=== PATIENT | female | born 1960 | race Caucasian/White ===

== ENCOUNTER 2017-07-28 09:34 | Observation (INO) | payer OTHER ==
[~2017-07-28] VITALS: Ht 170.2 cm; Wt 93.6 kg
[2017-07-28] MEDS ORDERED: SODIUM CHLORIDE FLUSH 10ML SYR IVF ONE (10:30)
[2017-07-28] MEDS ORDERED: ONDANSETRON 2MG/ML, 2ML IVPush ONE (10:30)
[2017-07-28] MEDS ORDERED: CEFOTETAN 1 GM ONE (10:34)
[2017-07-28] MEDS ORDERED: DEXAMETHASONE 4 MG/ML, 1ML ONE ×2 (10:34→16:15)
[2017-07-28] MEDS ORDERED: ROCURONIUM 10 MG/ML,10ML ONE (10:34)
[2017-07-28] MEDS ORDERED: PROPOFOL 10 MG/ML, 20ML ONE ×2 (10:34→15:45)
[2017-07-28] MEDS ORDERED: SUCCINYLCHOLINE 20 MG/ML, 10ML ONE (10:34)
[2017-07-28] MEDS ORDERED: ONDANSETRON 2MG/ML, 2ML ONE ×3 (10:34→16:24)
[2017-07-28] MEDS ORDERED: NEOSTIGMINE 1 MG/ML, 10ML ONE ×2 (10:34→16:22)
[2017-07-28] MEDS ORDERED: GLYCOPYRROLATE 0.2MG/1ML, 5ML ONE (10:34)
[2017-07-28 10:38] LABS: BASOPHILS # (AUTO) 0.11 x10^3/uL (0-0.1); BASOPHILS % (AUTO) 1 % (0-1); EOSINOPHILS # (AUTO) 0.07 x10^3/uL (0-0.4); EOSINOPHILS % (AUTO) 1 % (1-7); LYMPHOCYTES # (AUTO) 1.31 x10^3/uL (1-3.4); LYMPHOCYTES % (AUTO) 15 % (22-44); MD NO; MEAN CORPUSCULAR HEMOGLOBIN 28.8 pg (27.0-34.8); MEAN CORPUSCULAR HGB CONC 33.2 g/dL (32.4-35.8); MEAN CORPUSCULAR VOLUME 86.7 fL (80-100); MEAN PLATELET VOLUME 7.9 fL (7.4-10.4); MONOCYTES # (AUTO) 0.64 x10^3/uL (0.2-0.8); MONOCYTES % (AUTO) 7 % (2-9); NEUTROPHILS # (AUTO) 6.83 x10^3/uL (1.8-6.8); NEUTROPHILS % (AUTO) 76 % (42-75); PLATELET COUNT 220 x10^3/uL (130-400); RED BLOOD COUNT 4.51 x10^6/uL (3.82-5.3); RED CELL DISTRIBUTION WIDTH 14.1 % (9.6-15.2)
[2017-07-28 10:50] LABS: ALBUMIN 3.4 g/dL (3.4-5.0); ANION GAP 8 mmol/L (5-15); CALCIUM 8.8 mg/dL (8.5-10.1); CHLORIDE 111 mmol/L (98-107)
[2017-07-28 10:50] LABS: MICROSCOPIC NOT IND
[2017-07-28 10:51] LABS: CULTURE INDICATED? NO
[2017-07-28 10:54] LABS: ALANINE AMINOTRANSFERASE 63 U/L (12-78); ALKALINE PHOSPHATASE 71 U/L (45-117); BILIRUBIN,TOTAL 0.9 mg/dL (0.2-1.0); CREATININE 0.73 mg/dL (0.55-1.02); TOTAL PROTEIN 7.2 g/dL (6.4-8.2)
[2017-07-28] MEDS ORDERED: MORPHINE SULFATE 4 MG/ML, 1ML ONE ×2 (10:59→11:38)
[2017-07-28] MEDS: MORPHINE SULFATE 4 MG/ML, 1ML IVPush PRN ×2 (11:10→11:48)
[2017-07-28] MEDS ORDERED: TOPI50TA8 PO (11:20)
[2017-07-28] MEDS ORDERED: VITA1TAB68 PO (11:20)
[2017-07-28] MEDS ORDERED: SELE200T10 PO (11:20)
[2017-07-28] MEDS ORDERED: VITA100C8 PO (11:20)
[2017-07-28] MEDS ORDERED: ESTR1TAB17 PO (11:20)
[2017-07-28] MEDS ORDERED: LIOT5TAB3 PEG (11:20)
[2017-07-28] MEDS ORDERED: ROSU5TAB PO (11:20)
[2017-07-28] MEDS ORDERED: MELO15TA24 PO (11:20)
[2017-07-28] MEDS ORDERED: DULO30CA2 PO (11:20)
[2017-07-28] MEDS ORDERED: TRAZ50TA18 PO (11:20)
[2017-07-28] MEDS ORDERED: UBID100C24 PEG (11:20)
[2017-07-28] MEDS ORDERED: PREG100C PO (11:20)
[2017-07-28] MEDS ORDERED: CALC1WAF PO (11:20)
[2017-07-28] MEDS ORDERED: IODORAL (11:20)
[2017-07-28] MEDS ORDERED: BACL-19 PO (11:20)
[2017-07-28] MEDS ORDERED: AZEL137S4 NAS (11:20)
[2017-07-28] MEDS ORDERED: NA P1TAB PO (11:20)
[2017-07-28] MEDS ORDERED: LUBI8CAP4 PO (11:20)
[2017-07-28] MEDS ORDERED: OMNIPAQUE 350 MG/ML, 100ML BOTTLE ONE (11:25)
[2017-07-28] MEDS ORDERED: CEFOTETAN PMX 1GM/50ML 50 ML ONE (11:53)
[2017-07-28] MEDS ORDERED: CEFOTETAN PMX 1GM/50ML 50 ML IV ONE (12:00)
[2017-07-28] MEDS ORDERED: ACETAMINOPHEN 500 MG TABLET PO ONE (15:00)
[2017-07-28] MEDS ORDERED: GABAPENTIN 300 MG CAPSULE PO ONE (15:00)
[2017-07-28] MEDS ORDERED: BUPIVACAINE/PF 0.5% ONE (15:29)
[2017-07-28] MEDS ORDERED: EPINEPHRINE 1 MG/ML, 1ML ONE (15:29)
[2017-07-28] MEDS ORDERED: MIDAZOLAM 1 MG/ML, 2ML ONE (15:44)
[2017-07-28] MEDS ORDERED: FENTANYL PF 250 MCG/5ML ONE (15:45)
[2017-07-28] MEDS ORDERED: MIDAZOLAM 1 MG/ML, 2ML IV PRN (16:00)
[2017-07-28] MEDS ORDERED: FENTANYL PF 100 MCG/2ML IV PRN (16:00)
[2017-07-28] MEDS ORDERED: HYDROmorphone 1 MG/ML, 1ML IV PRN (16:00)
[2017-07-28] MEDS ORDERED: ACETAMINOPHEN 325 MG TABLET PO PRN (16:00)
[2017-07-28] MEDS ORDERED: MEPERIDINE/PF 25MG/0.5ML IVPush PRN (16:00)
[2017-07-28] MEDS ORDERED: morphine SULFATE 10 MG/ML, 1ML IV PRN (16:00)
[2017-07-28] MEDS ORDERED: HYDROcodone/APAP 7.5-325MG/15ML UDC PO PRN (16:00)
[2017-07-28] MEDS ORDERED: LABETALOL 5MG/ML, 20ML IV PRN (16:00)
[2017-07-28] MEDS ORDERED: hydrALAzine 20 MG/ML, 1ML IV PRN (16:00)
[2017-07-28] MEDS ORDERED: ONDANSETRON 2MG/ML, 2ML IVPush PRN (16:00)
[2017-07-28] MEDS ORDERED: PROMETHAZINE 12.5 MG SUPP PR PRN (16:00)
[2017-07-28] MEDS ORDERED: GLYCOPYRROLATE 0.4 MG/2 ML, 2ML ONE (16:22)
[2017-07-28] MEDS ORDERED: morphine SULFATE 10 MG/ML, 1ML IVPush PRN (16:30)
[2017-07-28] MEDS ORDERED: OXYcodone 5 MG/5 ML ORAL.SOL UDC PO PRN (16:30)
[2017-07-28] MEDS ORDERED: HYDROcodone/APAP 7.5-325MG/15ML UDC ONE (16:54)
[2017-07-28] MEDS ORDERED: FENTANYL PF 100 MCG/2ML ONE (16:54)
[2017-07-28] MEDS ORDERED: ONDANSETRON ODT 4 MG PO PRN (17:30)
[2017-07-28] MEDS ORDERED: OXYC1TAB7 PO (18:15)
[2017-07-28 18:53] VITALS: BP 98/52
== END 2017-07-28 19:10 | disposition home or self-care (01) ==
LOC: ED 10:57 → EDIP 11:40 → 4NOR 12:42
PROVIDERS: ADMIT Surgery; ATTEND Surgery
DX: K35.3 Acute appendicitis with localized peritonitis (principal); E03.9 Hypothyroidism, unspecified; Z90.710 Acquired absence of both cervix and uterus
CPT/HCPCS: 36415; 44970; 74177; 80053; 81003; 83690; 85025; 88304; 93005; 96365; 96375; 96376; 99285; G0378; J0171; J0330; J1100; J2250; J2405; J2704; J2710; J3010; J3490; Q9967; S0074

== ENCOUNTER → 2018-01-26 | Outpatient (CLI) | payer OTHER ==
[~2018-01-26] MED LIST: AZEL137S4 NAS; BACL-19 PO; CALC1WAF PO; DULO30CA2 PO; ESTR1TAB17 PO; IODORAL; LIOT5TAB3 PEG; LUBI8CAP4 PO; MELO15TA24 PO; NA P1TAB PO; OXYC1TAB7 PO; PREG100C PO; ROSU5TAB PO; SELE200T10 PO; TOPI50TA8 PO; TRAZ-136 PO; UBID100C24 PEG; VITA100C8 PO; VITA1TAB68 PO
== END | disposition home or self-care (01) ==
LOC: CFH 13:32
PROVIDERS: ATTEND Family Medicine
DX: N63.20 Unspecified lump in the left breast, unspecified quadrant (principal); N64.4 Mastodynia; E11.9 Type 2 diabetes mellitus without complications
CPT/HCPCS: 77066

== ENCOUNTER 2019-03-07 13:40 | Emergency (ER) | payer OTHER ==
[~2019-03-07] VITALS: Ht 172.7 cm; Wt 94.0 kg
[~2019-03-07 13:40] MED LIST changes: +LIOT5TAB11 PEG; -LIOT5TAB3 PEG; -TRAZ-136 PO; +TRAZ50TA66 PO
--- NOTE | 2019-03-07 14:46 | NUR ---
FROM LOBBY TO ROOM AT THIS TIME
--- NOTE | 2019-03-07 15:01 | NUR ---
THIS IS A 58YO FEMALE THAT COMES IN W/ C/O RIGHT UPPER QUAD PAIN SINCE THIS AM. PT REPORTS HAVING APPENDIX OUT 2018. DENIES V/D AND TRAUMA. PT DENIES RECENT DIET AND MEDICATION CHANGES. PT CONNECTED TO ALL MONITORING. VSS CALL LIGHT WITHIN REACH. AT BEDSIDE.
--- NOTE | 2019-03-07 15:07 | NUR ---
MD AT BEDSIDE TO ASSESS PT
[2019-03-07] MEDS ORDERED: SODIUM CHLORIDE 0.9% 1,000ML IVBOLUS ONE (15:30)
[2019-03-07] MEDS ORDERED: ONDANSETRON 2MG/ML, 2ML IVPush ONE (15:30)
[2019-03-07] MEDS ORDERED: MORPHINE SULFATE 4 MG/ML, 1ML ONE ×2 (15:31→15:51)
[2019-03-07] MEDS ORDERED: ONDANSETRON 2MG/ML, 2ML ONE ×2 (15:31→17:46)
[2019-03-07 15:34] LABS: BASOPHILS # (AUTO) 0.03 x10^3/uL (0-0.1); BASOPHILS % (AUTO) 0 % (0-1); EOSINOPHILS # (AUTO) 0.07 x10^3/uL (0-0.4); EOSINOPHILS % (AUTO) 1 % (1-7); LYMPHOCYTES # (AUTO) 1.07 x10^3/uL (1-3.4); LYMPHOCYTES % (AUTO) 14 % (22-44); MD NO; MEAN CORPUSCULAR HEMOGLOBIN 29.6 pg (27.0-34.8); MEAN CORPUSCULAR HGB CONC 33.3 g/dL (32.4-35.8); MEAN CORPUSCULAR VOLUME 88.8 fL (80-100); MEAN PLATELET VOLUME 7.7 fL (7.4-10.4); MONOCYTES # (AUTO) 0.49 x10^3/uL (0.2-0.8); MONOCYTES % (AUTO) 6 % (2-9); NEUTROPHILS # (AUTO) 6.24 x10^3/uL (1.8-6.8); NEUTROPHILS % (AUTO) 79 % (42-75); PLATELET COUNT 231 x10^3/uL (130-400); RED BLOOD COUNT 4.86 x10^6/uL (3.82-5.3)
[2019-03-07] MEDS: MORPHINE SULFATE 4 MG/ML, 1ML IVPush PRN ×2 (15:34→15:58)
[2019-03-07 15:39] LABS: INTERNATIONAL NORMALIZED RATIO 1.02 (0.93-1.1); PROTHROMBIN TIME 10.7 Seconds (9.6-11.5)
[2019-03-07 15:42] LABS: ALANINE AMINOTRANSFERASE 55 U/L (12-78); ALBUMIN 3.5 g/dL (3.4-5.0); ANION GAP 6 mmol/L (5-15); CALCIUM 8.9 mg/dL (8.5-10.1); CHLORIDE 108 mmol/L (98-107); CREATININE 0.93 mg/dL (0.55-1.02)
[2019-03-07 15:45] LABS: ALKALINE PHOSPHATASE 66 U/L (45-117); BILIRUBIN,TOTAL 1.2 mg/dL (0.2-1.0); TOTAL PROTEIN 6.9 g/dL (6.4-8.2)
[2019-03-07 15:58] VITALS: BP 118/64
--- NOTE | 2019-03-07 16:03 | NUR ---
PT TO ULTRASOUND AT THIS TIME
--- NOTE | 2019-03-07 16:22 | NUR ---
ALL RESULTS BACK AT THIS TIME, CHART UP FOR RECHECK
--- NOTE | 2019-03-07 16:38 | NUR ---
AT BEDSIDE TO REASSESS PT AND DISCUSS POC
[2019-03-07] MEDS ORDERED: SODIUM CHLORIDE 0.9%, 500ML IVBOLUS ONE (17:00)
[2019-03-07] MEDS ORDERED: SODIUM CHLORIDE 0.9% 1,000 ML IV SCH (17:00)
--- NOTE | 2019-03-07 17:01 | NUR ---
AWAITING SURGERY TO SEE PT FOR DISPO.
--- NOTE | 2019-03-07 17:08 | NUR ---
REPORT CALLED TO [facility]UNG OR.
[2019-03-07] MEDS ORDERED: EPINEPHRINE 1 MG/ML, 1ML ONE (17:16)
[2019-03-07] MEDS ORDERED: BUPIVACAINE/PF 0.5% ONE (17:16)
[2019-03-07] MEDS ORDERED: FENTANYL PF 250 MCG/5ML ONE (17:32)
[2019-03-07] MEDS ORDERED: SUCCINYLCHOLINE 20 MG/ML, 10ML ONE (17:46)
[2019-03-07] MEDS ORDERED: ROCURONIUM 10MG/ML,5ML ONE (17:46)
[2019-03-07] MEDS ORDERED: KETOROLAC 30 MG/1 ML ONE (17:46)
[2019-03-07] MEDS ORDERED: DEXAMETHASONE 4 MG/ML, 1ML ONE (17:46)
[2019-03-07] MEDS ORDERED: PROPOFOL 10 MG/ML, 20ML ONE (17:46)
[2019-03-07] MEDS ORDERED: CEFOTETAN 2 GM ONE (17:46)
[2019-03-07] MEDS ORDERED: NEOSTIGMINE 1 MG/ML, 10ML ONE (17:46)
[2019-03-07] MEDS ORDERED: GLYCOPYRROLATE 0.2MG/1ML, 5ML ONE (17:46)
[2019-03-07] MEDS ORDERED: BUPIVACAINE/PF-EPI 0.5% 1:200K INFIL ONE (18:06)
[2019-03-07] MEDS ORDERED: PROMETHAZINE 25 MG/ML, 1ML ONE (18:39)
[2019-03-07] MEDS ORDERED: HYDROmorphone 1 MG/ML, 1ML VIAL ONE (18:45)
[2019-03-07] MEDS: HYDROmorphone 2 MG/ML, 1ML IVPush PRN ×2 (18:48→19:01)
[2019-03-07] MEDS ORDERED: hydrALAzine 20 MG/ML, 1ML IV PRN (19:00)
[2019-03-07] MEDS ORDERED: OXYcodone 5 MG/5 ML ORAL.SOL UDC PO PRN (19:00)
[2019-03-07] MEDS ORDERED: HALOPERIDOL 5 MG/ML IV PRN (19:00)
[2019-03-07] MEDS ORDERED: PROMETHAZINE 25 MG/ML, 1ML IV PRN (19:00)
[2019-03-07] MEDS ORDERED: LABETALOL 5MG/ML, 20ML IV PRN (19:00)
[2019-03-07] MEDS ORDERED: FENTANYL PF 100 MCG/2ML IV PRN (19:00)
[2019-03-07] MEDS ORDERED: MEPERIDINE/PF 25MG/ML,1ML IVPush PRN (19:00)
[2019-03-07] MEDS ORDERED: LORazepam 2 MG/ML, 1ML IVPush PRN (19:00)
[2019-03-07] MEDS ORDERED: HYDR-3237 PO (19:52)
[2019-03-07] MEDS ORDERED: ONDANSETRON 2MG/ML, 2ML IVPush PRN (20:00)
[2019-03-07] MEDS ORDERED: LACTATED RINGERS 1,000 ML IV SCH (20:00)
[2019-03-07] MEDS ORDERED: HYDROcodone/APAP 5/325 TABLET PO PRN (20:00)
[2019-03-07] MEDS: HYDROmorphone 2 MG/ML, 1ML IV PRN ×3 (21:37→22:18)
== END 2019-03-07 23:05 | disposition home or self-care (01) ==
LOC: ED 17:00 → 4NE 19:35 → ED 23:05
DX: K80.00 Calculus of gallbladder with acute cholecystitis without obstruction (principal); E11.9 Type 2 diabetes mellitus without complications; E03.9 Hypothyroidism, unspecified; Z90.89 Acquired absence of other organs; Z90.710 Acquired absence of both cervix and uterus
CPT/HCPCS: 36415; 76700; 80053; 83605; 83690; 85025; 85610; 88304; 96361; 96374; 96375; 96376; 99284; J0171; J0330; J1100; J1170; J1885; J2270; J2405; J2550; J2704; J2710; J3010; J3490; J7030; S0020; G0378